=== PATIENT | female | born 1965 | race Caucasian/White ===

== ENCOUNTER 2016-07-30 11:13 | Day surgery (SDC) | payer OTHER ==
[~2016-07-30] VITALS: Ht 154.9 cm; Wt 71.3 kg
[2016-07-30] MEDS ORDERED: [UNRECOGNIZED DRUG - REMARK] (12:41)
[2016-07-30] MEDS ORDERED: OMEPRAZOLE (12:41)
[2016-07-30 12:42] VITALS: Ht 154.9 cm; Wt 71.3 kg
[2016-07-30] MEDS ORDERED: FENTAnyl 50 MCG/ML VIAL ONE (15:43)
[2016-07-30] MEDS ORDERED: MIDAZOLAM 1 MG/ML 2 ML INJ ONE ×2 (15:43)
--- NOTE | 2016-07-30 15:54 | GILP ---
DATE OF PROCEDURE: 07/30/2016 PROCEDURE: Esophagogastroduodenoscopy with biopsies. BRIEF HISTORY AND INDICATIONS: The patient is being evaluated for dyspepsia. PREMEDICATION: Monitored anesthesia care by anesthesiologist. SURGEON: Camacho Nguyen MD INSTRUMENT USED: Olympus panendoscope. TECHNIQUE: After informed consent, with the patient/relatives understanding the procedure, its indic ations, potential risks and complications, including but not limited to: allergic reaction, bleeding , perforation or infection, and after all pertinent questions were answered to the patients satisfac tion, the patient/relatives signed witnessed informed consent. Following this, premedication was ad ministered slowly IV push under careful cardiovascular and respiratory monitoring with pulse oximetr y, automatic blood pressure and playground monitor. Once the sedative effect was achieved the patient was place in the left lateral decubitus, the panen doscope was introduced and advanced under visual control. Careful examination of the upper gastroin testinal tract, both on insertion as well as withdrawal of the instrument disclosed the following fi ndings: ESOPHAGUS: The distal esophagus shows erythema and edema of the mucosa of a moderate degree. STOMACH: Upon entrance to the stomach, air was insufflated, the gastric jeffers distended normally. The mucosa of the fundus, body and antrum of the stomach was carefully examined, shows erythema and edema of the mucosa of a moderate degree. Biopsies were obtained to rule out H. pylori infection. PYLORUS: The pylorus appears patent and within normal limits, with no evidence of gastric outlet ob struction. DUODENUM: The duodenal mucosa was carefully examined in the duodenal bulb as well as the second por tion of the duodenum and appears unremarkable with no evidence of duodenitis, ulcer or neoplasm. The instrument was then withdrawn, the patient tolerated the procedure well and was transfer out of the endoscopy suite awake, and in good condition to continue recovery under observation IMPRESSION: 1. Distal esophagitis, moderate. 2. Gastritis, moderate. Rule out Helicobacter pylori infection. Biopsies obtained. PLAN: The patient will be continued on PPIs. Further recommendations will depend on her clinical c ourse as well as review of biopsies. Dictated By: CAMACHO NGUYEN MS/NTS Conf#: [id number] DID#: [id number] CC: CAMACHO NGUYEN;*EndCC*
== END 2016-07-30 15:19 | disposition home or self-care (01) ==
LOC: GIL 11:13
PROVIDERS: ATTEND Internal Medicine Gastroenterology
DX: K29.50 Unspecified chronic gastritis without bleeding (principal); K20.8 Other esophagitis
CPT/HCPCS: 43239; 88305; 88312; J2250; J3010; Z7610